=== PATIENT | male | born 1985 | race Two or more races ===

== ENCOUNTER 2020-12-07 12:00 | Emergency (ER) | payer SELFPAY ==
[~2020-12-07] VITALS: Ht 175.3 cm; Wt 93.0 kg
[2020-12-07 12:03] VITALS: BP 141/101
[2020-12-07] MEDS ORDERED: SODIUM CHLORIDE 0.9% 1,000 ML IV ONE (12:15)
== END 2020-12-07 12:12 | disposition left against medical advice (07) ==
LOC: ER 12:00 → EDBD 12:00 → ER 12:12
DX: R55 Syncope and collapse (principal); Z53.29 Procedure and treatment not carried out because of patient's decision for other reasons